=== PATIENT | male | born 1945 | race Caucasian/White ===

== ENCOUNTER 2019-01-03 11:30 | Inpatient (IN) ==
[~2019-01-03 11:30] MED LIST: ACETAMINOPHEN 325 MG TABLET PO PRN; ALBUTEROL/IPRATROPIUM 3 ML NEB RESP TX PRN; BIVALIRUDIN 250 MG VIAL IV ONE; DOCUSATE SODIUM 100 MG CAPSULE PO PRN; HEPARIN/NACL 0.9% 2 UNITS/ML 1,000 ML IV ONE; HYDROmorphone 2 MG/1 ML VIAL ONE; LACTULOSE 20 GM/30 ML UDCUP PO PRN; LIDOCAINE 1% 20 ML VIAL ONE; MAGNESIUM SULF RIDER 4 GM in PREMIX 1 EACH IV PRN; MIDAZOLAM 2 MG/2 ML VIAL ONE; MORPHINE 4 MG/1 ML VIAL IV PRN; ONDANSETRON 4 MG/2 ML VIAL IV PRN; POTASSIUM CHLORIDE 20 MEQ TABLET PO PRN; PROMETHAZINE 25 MG TABLET PO PRN; ZALEPLON 5 MG CAPSULE PO PRN; diphenhydrAMINE CAP 25 MG CAPSULE PO PRN; guaiFENesin/DM ER 600-30 MG TABLET PO PRN
[2019-01-03] MEDS ORDERED: HEPARIN/NACL 0.9% 2 UNITS/ML 500 ML IV ONE (11:44)
[2019-01-03] MEDS ORDERED: TICAGRELOR 90 MG TABLET ONE (11:59)
[2019-01-03] MEDS ORDERED: DEXTROSE 10% 250 ML BAG IV PRN (12:18)
[2019-01-03] MEDS ORDERED: GLUCAGON 1 MG VIAL IM PRN (12:18)
[2019-01-03] MEDS ORDERED: NITROGLYCERIN SL 0.4 MG TABLET SL PRN (12:18)
[2019-01-03] MEDS ORDERED: hydrALAZINE 20 MG/1 ML VIAL IV PRN (12:42)
[2019-01-03] MEDS: SODIUM CHLORIDE 0.9% 1,000 ML IV SCH (12:49)
[2019-01-03] MEDS: INSULIN LISPRO 100 UNIT/ML SUBCUT SCH ×3 (14:06→22:58)
[2019-01-03] MEDS: NICOTINE 21 MG/24 HR PATCH TRANSDERM SCH (14:06)
[2019-01-03 14:41] LABS: Basophils # 0.1 10*3/uL (0.0-0.2); Basophils % 0.4 % (0.0-0.8); Eosinophils % 0.1 % (0.00-10.9); Hemoglobin 15.9 GM/DL (14.0-18.0); Immature Granulocytes % 0.7 %; Immature Granulocytes Absolute 0.08 #; Lymphocytes # 1.2 10*3/uL (1.4-4.0); Mean Corpuscular HGB Conc 33.8 GM/DL (32-36); Mean Corpuscular Volume 90.2 FL (87-102); Mean Platelet Volume 11.1 FL (9.6-12.0); Monocytes % 5.8 % (1.7-12.7); Platelet Count 206 T/CUMM (130-400); Red Blood Count 5.21 MC/CUMM (3.8-5.5)
[2019-01-03 15:12] LABS: Albumin 3.5 G/DL (3.4-5.0); Bilirubin,Total 0.6 MG/DL (0.2-1.0); Calcium 8.4 MG/DL (8.5-10.1); Osmolality,Calculated 283.5 MOS/KG (273-304); Risk Ratio 2.92; Thyroid Stimulating Hormone 0.69 uIU/ml (0.358-3.74); Total Protein 7.2 G/DL (6.4-8.3); VLDL CHOLESTEROL 19.6 MG/DL
[2019-01-03 15:23] LABS: Apearance,Urine CLEAR (Clear); Bilirubin,Urine Negative (Negative); Blood, Urine Large mg/dL (Negative); Glucose,Urine (UA) >=500 mg/dL (Negative); Ketones,Urine 5 mg/dL (Negative); Nitrite,Urine Negative (Negative); Protein,Urine 100 MG/DL; RBC,Urine 3 /HPF (0-4); Squamous Epithelial Cell,Urine Occasional /HPF (0-10); Urine Color Yellow (Yellow); Urine Specific Gravity > 1.060 (1.001-1.035); Urine Urobilinogen < 2.0 EU/DL (0.2-1.0); WBC,Urine 1 /HPF (0-6)
[2019-01-03 15:27] LABS: CKMB % 16.1 %
[2019-01-03 15:34] LABS: Troponin I > 200.000 NG/ML (0.00-0.045)
[2019-01-03] MEDS: MAGNESIUM SULF RIDER 2 GM in PREMIX 1 EACH IV PRN (17:12)
[2019-01-03 18:09] LABS: CKMB % 16.7 %; Troponin I > 200.000 NG/ML (0.00-0.045)
[2019-01-03] MEDS: TICAGRELOR 90 MG TABLET PO SCH (20:26)
[2019-01-03] MEDS: carvediloL 6.25 MG TABLET PO SCH (20:26)
[2019-01-03] MEDS: glipiZIDE 10 MG TABLET PO SCH (20:26)
[2019-01-03] MEDS: OMEGA 3 ACID ETHYL ESTERS 1 GM CAPSULE PO SCH (23:04)
[2019-01-04 05:43] LABS: Basophils % 0.3 % (0.0-0.8); Eosinophils # 0.1 10*3/uL (0.0-0.87); Eosinophils % 0.5 % (0.00-10.9); Hematocrit 40.1 VOL% (42.0-52.0); Hemoglobin 13.7 GM/DL (14.0-18.0); Immature Granulocytes % 0.4 %; Immature Granulocytes Absolute 0.04 #; Lymphocytes # 1.7 10*3/uL (1.4-4.0); Lymphocytes % 15.1 % (21.2-54.2); Mean Corpuscular HGB Conc 34.2 GM/DL (32-36); Mean Corpuscular Volume 89.3 FL (87-102); Monocytes % 7.1 % (1.7-12.7); Neutrophils % 76.6 % (38.7-73.9); Platelet Count 191 T/CUMM (130-400); Red Blood Count 4.49 MC/CUMM (3.8-5.5); Red Cell Distribution Width 13.1 % (9.3-17.3)
[2019-01-04] MEDS: LEVOTHYROXINE 150 MCG TABLET PO SCH (06:18)
[2019-01-04 06:34] LABS: CKMB % 13.8 %; Calcium 8.1 MG/DL (8.5-10.1); Osmolality,Calculated 278.8 MOS/KG (273-304)
[2019-01-04] MEDS: MAGNESIUM SULF RIDER 2 GM in PREMIX 1 EACH IV PRN (06:48)
[2019-01-04 06:59] LABS: Bilirubin,Direct 0.19 MG/DL (0.0-0.20); Bilirubin,Indirect 0.6 MG/DL (0.0-1.0); Bilirubin,Total 0.8 MG/DL (0.2-1.0); Total Protein 6.2 G/DL (6.4-8.3)
[2019-01-04 07:15] LABS: Hepatitis B Core IgM Quant < 0.05 Index; Hepatitis B Surface Ag Quant < 0.10 Index; Hepatitis B Surface Ag Result Negative (Negative); Hepatitis C Virus Ab Quant 0.15 Index; Hepatitis C Virus Ab Result Negative (Negative)
[2019-01-04] MEDS: NICOTINE 21 MG/24 HR PATCH TRANSDERM SCH (08:55)
[2019-01-04] MEDS: INSULIN LISPRO 100 UNIT/ML SUBCUT SCH ×4 (08:55→21:36)
[2019-01-04] MEDS: ASPIRIN EC 81 MG TABLET PO SCH (08:56)
[2019-01-04] MEDS: CYANOCOBALAMIN 500 MCG TABLET PO SCH (08:56)
[2019-01-04] MEDS: ROSUVASTATIN 20 MG TABLET PO SCH (08:56)
[2019-01-04] MEDS: CHOLECALCIFEROL 1,000 UNIT TABLET PO SCH (08:56)
[2019-01-04] MEDS: LISINOPRIL 10 MG TABLET PO SCH (08:56)
[2019-01-04] MEDS: glipiZIDE 10 MG TABLET PO SCH ×2 (08:56→21:36)
[2019-01-04] MEDS: PANTOPRAZOLE 40 MG TABLET PO SCH (08:56)
[2019-01-04] MEDS: MULTIVITAMIN (CENTRUM) TABLET PO SCH (08:56)
[2019-01-04] MEDS: carvediloL 6.25 MG TABLET PO SCH ×2 (08:56→21:36)
[2019-01-04] MEDS: TICAGRELOR 90 MG TABLET PO SCH ×2 (08:56→21:36)
[2019-01-04] MEDS: OMEGA 3 ACID ETHYL ESTERS 1 GM CAPSULE PO SCH ×2 (08:56→21:36)
[2019-01-04] MEDS: SODIUM CHLORIDE 0.9% 1,000 ML IV SCH (11:39)
[2019-01-05] MEDS: LEVOTHYROXINE 150 MCG TABLET PO SCH (06:04)
[2019-01-05 06:20] LABS: Calcium 8.4 MG/DL (8.5-10.1); Osmolality,Calculated 281.5 MOS/KG (273-304)
[2019-01-05] MEDS: INSULIN LISPRO 100 UNIT/ML SUBCUT SCH ×4 (09:09→22:07)
[2019-01-05] MEDS: TICAGRELOR 90 MG TABLET PO SCH ×2 (09:11→22:06)
[2019-01-05] MEDS: glipiZIDE 10 MG TABLET PO SCH ×2 (09:12→22:07)
[2019-01-05] MEDS: CHOLECALCIFEROL 1,000 UNIT TABLET PO SCH (09:12)
[2019-01-05] MEDS: carvediloL 6.25 MG TABLET PO SCH ×2 (09:12→22:07)
[2019-01-05] MEDS: NICOTINE 21 MG/24 HR PATCH TRANSDERM SCH (09:13)
[2019-01-05] MEDS: ROSUVASTATIN 20 MG TABLET PO SCH (09:14)
[2019-01-05] MEDS: ASPIRIN EC 81 MG TABLET PO SCH (09:15)
[2019-01-05] MEDS: LISINOPRIL 10 MG TABLET PO SCH (09:16)
[2019-01-05] MEDS: OMEGA 3 ACID ETHYL ESTERS 1 GM CAPSULE PO SCH ×2 (09:16→22:06)
[2019-01-05] MEDS: CYANOCOBALAMIN 500 MCG TABLET PO SCH (09:17)
[2019-01-05] MEDS: MULTIVITAMIN (CENTRUM) TABLET PO SCH (09:17)
[2019-01-05] MEDS: PANTOPRAZOLE 40 MG TABLET PO SCH (09:17)
[2019-01-06 05:23] LABS: Basophils % 0.3 % (0.0-0.8); Eosinophils # 0.1 10*3/uL (0.0-0.87); Eosinophils % 1.5 % (0.00-10.9); Hematocrit 37.8 VOL% (42.0-52.0); Hemoglobin 12.8 GM/DL (14.0-18.0); Immature Granulocytes % 0.2 %; Immature Granulocytes Absolute 0.02 #; Lymphocytes % 21.2 % (21.2-54.2); Mean Corpuscular HGB Conc 33.9 GM/DL (32-36); Mean Corpuscular Volume 90.6 FL (87-102); Mean Platelet Volume 11.5 FL (9.6-12.0); Monocytes % 10.9 % (1.7-12.7); Neutrophils % 65.9 % (38.7-73.9); Platelet Count 164 T/CUMM (130-400); Red Blood Count 4.17 MC/CUMM (3.8-5.5); White Blood Count 9.2 T/CUMM (4-12)
[2019-01-06 05:38] LABS: Osmolality,Calculated 283.4 MOS/KG (273-304)
[2019-01-06] MEDS: LEVOTHYROXINE 150 MCG TABLET PO SCH (05:40)
[2019-01-06] MEDS ORDERED: MAGNESIUM SULF RIDER 2 GM in PREMIX 1 EACH IV PRN (07:48)
[2019-01-06] MEDS ORDERED: MAGNESIUM SULF RIDER 4 GM in PREMIX 1 EACH IV PRN (07:48)
[2019-01-06] MEDS: NICOTINE 21 MG/24 HR PATCH TRANSDERM SCH (09:00)
[2019-01-06] MEDS: INSULIN LISPRO 100 UNIT/ML SUBCUT SCH ×2 (09:00→13:04)
[2019-01-06] MEDS: PANTOPRAZOLE 40 MG TABLET PO SCH (09:01)
[2019-01-06] MEDS: LISINOPRIL 10 MG TABLET PO SCH (09:01)
[2019-01-06] MEDS: ASPIRIN EC 81 MG TABLET PO SCH (09:01)
[2019-01-06] MEDS: carvediloL 6.25 MG TABLET PO SCH (09:02)
[2019-01-06] MEDS: CYANOCOBALAMIN 500 MCG TABLET PO SCH (09:02)
[2019-01-06] MEDS: CHOLECALCIFEROL 1,000 UNIT TABLET PO SCH (09:02)
[2019-01-06] MEDS: MULTIVITAMIN (CENTRUM) TABLET PO SCH (09:02)
[2019-01-06] MEDS: glipiZIDE 10 MG TABLET PO SCH (09:02)
[2019-01-06] MEDS: TICAGRELOR 90 MG TABLET PO SCH (09:02)
[2019-01-06] MEDS: OMEGA 3 ACID ETHYL ESTERS 1 GM CAPSULE PO SCH (09:02)
[2019-01-06] MEDS: ROSUVASTATIN 20 MG TABLET PO SCH (09:04)
[2019-01-06 12:52] VITALS: BP 107/65
== END 2019-01-06 14:06 | disposition home or self-care (01) | DRG 247 ==
LOC: EDSTATUS 11:30 → N.CC 12:12 → N.CL 12:12 → N.SDSINP 12:12 → N.CC 12:15 → N.TELES 01-04 10:04 → N.CL 01-06 14:06 → N.TELES 01-06 23:25
PROVIDERS: ADMIT Internal Medicine Cardiovascular Disease; ATTEND Internal Medicine Cardiovascular Disease
PROC: CLCCHCL (ICD-10-PCS; 2019-01-03 11:45)

== ENCOUNTER 2021-04-29 22:58 | Inpatient (IN) ==
[2021-04-29] MEDS ORDERED: DILTIAZEM 50 MG/10 ML VIAL IV ONE (23:07)
[2021-04-29] MEDS ORDERED: AMIODARONE 150 MG/3 ML VIAL ONE (23:10)
[2021-04-29] MEDS ORDERED: METOPROLOL TARTRATE 5 MG/5 ML VIAL IV STA (23:29)
[2021-04-29] MEDS ORDERED: METOPROLOL TARTRATE 25 MG TABLET PO STA (23:29)
[2021-04-29 23:36] LABS: Basophils # 0.1 10*3/uL (0.0-0.2); Basophils % 0.5 % (0.0-0.8); Eosinophils # 0.4 10*3/uL (0.0-0.87); Eosinophils % 3.8 % (0.00-10.9); Hematocrit 41.8 VOL% (42.0-52.0); Immature Granulocytes % 0.2 %; Immature Granulocytes Absolute 0.02 #; Mean Corpuscular HGB Conc 33.5 GM/DL (32-36); Mean Corpuscular Volume 89.5 FL (87-102); Mean Platelet Volume 11.7 FL (9.6-12.0); Monocytes % 9.3 % (1.7-12.7); Neutrophils % 65.2 % (38.7-73.9); Platelet Count 204 T/CUMM (130-400); Red Blood Count 4.67 MC/CUMM (3.8-5.5); Red Cell Distribution Width 13.5 % (9.3-17.3); White Blood Count 9.6 T/CUMM (4-12)
[2021-04-29] MEDS ORDERED: DILTIAZEM 100 MG VIAL.ADD IV ONE (23:43)
[2021-04-29] MEDS ORDERED: DILTIAZEM INJ 100 MG in SODIUM CHLORIDE 0.9% 100 ML IV SCH (23:45)
[2021-04-29] MEDS ORDERED: DILTIAZEM 50 MG/10 ML VIAL IV STA (23:54)
[2021-04-29 23:55] LABS: INR 1.1; PT Patient Result 11.7 SECS (10.5-12.0)
[2021-04-30 00:05] LABS: Glucose,Urine (UA) 100 mg/dL (Negative); Ketones,Urine Negative (Negative); Nitrite,Urine Negative (Negative); Protein,Urine 30 mg/dL (Negative); Urine Appearance Clear (Clear); Urine Color Yellow (Yellow)
[2021-04-30 00:06] LABS: Albumin 3.4 G/DL (3.4-5.0); Bilirubin,Total 0.4 MG/DL (0.20-1.00); Calcium 8.8 MG/DL (8.5-10.1); Free T4 (Free Thyroxine) 1.45 NG/DL (0.76-1.46); Osmolality,Calculated 283.5 MOS/KG (273-304); Potassium 3.6 MMOL/L (3.5-5.1); Thyroid Stimulating Hormone 0.422 uIU/ml (0.358-3.74); Total Protein 7.3 G/DL (6.4-8.2)
[2021-04-30 00:06] LABS: Bilirubin,Urine Negative (Negative); Blood, Urine Trace mg/dL (Negative); Urine Urobilinogen 0.2 eU/dL (<2.0)
[2021-04-30 00:09] LABS: Barbiturates Screen,Urine Negative (Negative); Benzodiazepines Screen,Urine Negative (Negative); Cannabinoid Screen,Urine Negative (Negative); Opiate Screen,Urine Negative (Negative); Phencyclidine Screen,Urine Negative (Negative)
[2021-04-30 00:11] LABS: Bacteria,Urine Occasional /HPF (Few); RBC,Urine <1 /HPF (0-4)
[2021-04-30] MEDS ORDERED: AMIODARONE 450 MG/9 ML VIAL IV ONE (00:47)
[2021-04-30] MEDS ORDERED: MAGNESIUM SULF RIDER 2 GM/50 ML PREMIX IV PRN (00:53)
[2021-04-30] MEDS ORDERED: POTASSIUM CHLORIDE 20 MEQ TABLET PO PRN (00:53)
[2021-04-30] MEDS ORDERED: ONDANSETRON 4 MG/2 ML VIAL IV PRN (00:53)
[2021-04-30] MEDS ORDERED: GLUCAGON 1 MG VIAL IM PRN ×2 (00:53→13:03)
[2021-04-30] MEDS ORDERED: MAGNESIUM SULF RIDER 4 GM/100 ML PREMIX IV PRN (00:53)
[2021-04-30] MEDS ORDERED: AMIODARONE INJ 150 MG in DEXTROSE 5% 100 ML IV ONE (00:53)
[2021-04-30] MEDS ORDERED: MORPHINE 4 MG/1 ML VIAL IV PRN (00:56)
[2021-04-30] MEDS ORDERED: DEXTROSE 10% 250 ML BAG IV PRN (00:56)
[2021-04-30] MEDS ORDERED: AMIODARONE INJ 450 MG in DEXTROSE 5% 241 ML IV SCH (01:00)
[2021-04-30] MEDS: SODIUM CHLORIDE 0.9% 1,000 ML IV SCH ×3 (02:34→18:55)
[2021-04-30 03:24] VITALS: BP 90/52
[2021-04-30 04:39] LABS: Basophils % 0.5 % (0.0-0.8); Eosinophils # 0.3 10*3/uL (0.0-0.87); Eosinophils % 3.6 % (0.00-10.9); Hematocrit 38.5 VOL% (42.0-52.0); Immature Granulocytes % 0.2 %; Immature Granulocytes Absolute 0.02 #; Lymphocytes # 2.1 10*3/uL (1.4-4.0); Lymphocytes % 25.6 % (21.2-54.2); Mean Corpuscular HGB Conc 33.8 GM/DL (32-36); Mean Corpuscular Volume 89.1 FL (87-102); Mean Platelet Volume 11.2 FL (9.6-12.0); Monocytes % 10.6 % (1.7-12.7); Neutrophils % 59.5 % (38.7-73.9); Platelet Count 191 T/CUMM (130-400); Red Blood Count 4.32 MC/CUMM (3.8-5.5); Red Cell Distribution Width 13.3 % (9.3-17.3); White Blood Count 8.3 T/CUMM (4-12)
[2021-04-30 05:06] LABS: Albumin 2.8 G/DL (3.4-5.0); Bilirubin,Total 0.4 MG/DL (0.20-1.00); Calcium 8.4 MG/DL (8.5-10.1); Osmolality,Calculated 284.1 MOS/KG (273-304); Potassium 3.8 MMOL/L (3.5-5.1); Total Protein 6.1 G/DL (6.4-8.2)
[2021-04-30 05:12] LABS: Risk Ratio 2.63; VLDL Cholesterol 29.4 MG/DL
[2021-04-30] MEDS: INSULIN REGULAR 100 UNIT/ML SUBCUT SCH ×3 (05:54→18:20)
[2021-04-30] MEDS ORDERED: NITROGLYCERIN SL 0.4 MG TABLET SL PRN (07:08)
[2021-04-30] MEDS ORDERED: DIAZEPAM 5 MG TABLET PO ONE (08:49)
[2021-04-30] MEDS ORDERED: diphenhydrAMINE CAP 50 MG CAPSULE PO ONE (08:49)
[2021-04-30] MEDS ORDERED: diphenhydrAMINE CAP 25 MG CAPSULE PO ONE (09:00)
[2021-04-30] MEDS ORDERED: PANTOPRAZOLE 40 MG TABLET PO SCH (09:00)
[2021-04-30] MEDS: ROSUVASTATIN 20 MG TABLET PO SCH (10:08)
[2021-04-30] MEDS: glipiZIDE 5 MG TABLET PO SCH ×2 (10:09→20:16)
[2021-04-30] MEDS: LEVOTHYROXINE 175 MCG TABLET PO SCH (10:09)
[2021-04-30] MEDS: OMEGA 3 ACID ETHYL ESTERS 1 GM CAPSULE PO SCH ×2 (10:09→20:51)
[2021-04-30] MEDS: INSULIN GLARGINE 100 UNIT/ML SUBCUT SCH ×2 (10:10→20:47)
[2021-04-30] MEDS: carvediloL 6.25 MG TABLET PO SCH ×2 (10:20→20:15)
[2021-04-30] MEDS: AMIODARONE 200 MG TABLET PO SCH ×2 (10:20→20:16)
[2021-04-30] MEDS: TICAGRELOR 90 MG TABLET PO SCH ×2 (10:20→20:16)
[2021-04-30] MEDS: ASPIRIN EC 81 MG TABLET PO SCH (10:20)
[2021-04-30] MEDS: PANTOPRAZOLE 40 MG TABLET PO SCH (10:20)
[2021-04-30] MEDS ORDERED: HEPARIN/NACL 0.9% 2 UNITS/ML 2,000 UNIT/1,000 ML BAG IV ONE (10:24)
[2021-04-30] MEDS ORDERED: HYDROmorphone 1 MG/1 ML SYRINGE ONE (11:41)
[2021-04-30] MEDS ORDERED: MIDAZOLAM 2 MG/2 ML VIAL ONE (11:41)
[2021-04-30] MEDS ORDERED: BIVALIRUDIN 250 MG VIAL IV ONE (12:10)
[2021-04-30] MEDS ORDERED: TICAGRELOR 90 MG TABLET ONE (12:50)
[2021-04-30] MEDS ORDERED: DEXTROSE 50% 25 GM/50 ML VIAL IV PRN ×2 (13:03→17:20)
[2021-04-30] MEDS ORDERED: SODIUM CHLORIDE 0.9% 1,000 ML IV SCH (13:30)
[2021-05-01] MEDS: SODIUM CHLORIDE 0.9% 1,000 ML IV SCH (00:08)
[2021-05-01] MEDS: INSULIN REGULAR 100 UNIT/ML SUBCUT SCH ×4 (00:41→17:39)
[2021-05-01] MEDS ORDERED: MORPHINE 2 MG/1 ML SYRINGE IV PRN (05:25)
[2021-05-01 05:43] LABS: Basophils % 0.5 % (0.0-0.8); Eosinophils # 0.2 10*3/uL (0.0-0.87); Eosinophils % 2.2 % (0.00-10.9); Hematocrit 36.4 VOL% (42.0-52.0); Hemoglobin 12.2 GM/DL (14.0-18.0); Immature Granulocytes % 0.4 %; Immature Granulocytes Absolute 0.03 #; Lymphocytes # 1.2 10*3/uL (1.4-4.0); Lymphocytes % 13.6 % (21.2-54.2); Mean Corpuscular HGB Conc 33.5 GM/DL (32-36); Mean Corpuscular Volume 89.7 FL (87-102); Mean Platelet Volume 11.4 FL (9.6-12.0); Monocytes % 8.8 % (1.7-12.7); Neutrophils % 74.5 % (38.7-73.9); Platelet Count 155 T/CUMM (130-400); Red Blood Count 4.06 MC/CUMM (3.8-5.5); Red Cell Distribution Width 13.5 % (9.3-17.3); White Blood Count 8.5 T/CUMM (4-12)
[2021-05-01 06:01] LABS: Calcium 8.1 MG/DL (8.5-10.1); Osmolality,Calculated 285.3 MOS/KG (273-304)
[2021-05-01 06:02] LABS: Osmolality,Calculated 282.4 MOS/KG (273-304); Potassium 3.8 MMOL/L (3.5-5.1)
[2021-05-01] MEDS ORDERED: MAGNESIUM SULF RIDER 4 GM/100 ML PREMIX IV ONE (07:30)
[2021-05-01] MEDS: AMIODARONE 200 MG TABLET PO SCH ×2 (08:02→22:08)
[2021-05-01] MEDS: carvediloL 6.25 MG TABLET PO SCH ×2 (08:02→22:12)
[2021-05-01] MEDS: INSULIN GLARGINE 100 UNIT/ML SUBCUT SCH ×2 (09:27→22:09)
[2021-05-01] MEDS: LEVOTHYROXINE 175 MCG TABLET PO SCH (09:27)
[2021-05-01] MEDS: ASPIRIN EC 81 MG TABLET PO SCH (09:28)
[2021-05-01] MEDS: OMEGA 3 ACID ETHYL ESTERS 1 GM CAPSULE PO SCH ×2 (09:28→22:09)
[2021-05-01] MEDS: PANTOPRAZOLE 40 MG TABLET PO SCH (09:28)
[2021-05-01] MEDS: FUROSEMIDE 40 MG TABLET PO SCH (09:28)
[2021-05-01] MEDS: ROSUVASTATIN 20 MG TABLET PO SCH (09:28)
[2021-05-01] MEDS: glipiZIDE 5 MG TABLET PO SCH ×2 (09:28→22:09)
[2021-05-01] MEDS: TICAGRELOR 90 MG TABLET PO SCH ×2 (09:28→22:09)
[2021-05-01] MEDS: lisinopriL 10 MG TABLET PO SCH ×2 (09:28→22:08)
[2021-05-01] MEDS ORDERED: AMIODARONE INJ 150 MG in DEXTROSE 5% 100 ML IV ONE (11:14)
[2021-05-01] MEDS ORDERED: AMIODARONE 150 MG/3 ML VIAL ONE (11:21)
[2021-05-02] MEDS: INSULIN REGULAR 100 UNIT/ML SUBCUT SCH ×2 (00:56→06:00)
[2021-05-02 04:43] LABS: Basophils % 0.4 % (0.0-0.8); Eosinophils # 0.2 10*3/uL (0.0-0.87); Eosinophils % 2.3 % (0.00-10.9); Hematocrit 36.5 VOL% (42.0-52.0); Hemoglobin 12.4 GM/DL (14.0-18.0); Immature Granulocytes % 0.4 %; Immature Granulocytes Absolute 0.03 #; Lymphocytes # 1.5 10*3/uL (1.4-4.0); Lymphocytes % 18.7 % (21.2-54.2); Mean Platelet Volume 11.2 FL (9.6-12.0); Monocytes % 10.5 % (1.7-12.7); Neutrophils % 67.7 % (38.7-73.9); Platelet Count 162 T/CUMM (130-400); Red Blood Count 4.15 MC/CUMM (3.8-5.5); Red Cell Distribution Width 13.4 % (9.3-17.3); White Blood Count 8.2 T/CUMM (4-12)
[2021-05-02 05:06] LABS: Calcium 8.9 MG/DL (8.5-10.1); Osmolality,Calculated 279.3 MOS/KG (273-304); Potassium 3.3 MMOL/L (3.5-5.1)
[2021-05-02] MEDS ORDERED: POTASSIUM CHLORIDE 20 MEQ TABLET PO PRN (07:08)
[2021-05-02] MEDS: INSULIN GLARGINE 100 UNIT/ML SUBCUT SCH (09:00)
[2021-05-02] MEDS: carvediloL 6.25 MG TABLET PO SCH (09:01)
[2021-05-02] MEDS: lisinopriL 10 MG TABLET PO SCH (09:01)
[2021-05-02] MEDS: FUROSEMIDE 40 MG TABLET PO SCH (09:02)
[2021-05-02] MEDS: AMIODARONE 200 MG TABLET PO SCH (09:02)
[2021-05-02] MEDS: ASPIRIN EC 81 MG TABLET PO SCH (09:02)
[2021-05-02] MEDS: OMEGA 3 ACID ETHYL ESTERS 1 GM CAPSULE PO SCH (09:02)
[2021-05-02] MEDS: glipiZIDE 5 MG TABLET PO SCH (09:02)
[2021-05-02] MEDS: ROSUVASTATIN 20 MG TABLET PO SCH (09:02)
[2021-05-02] MEDS: LEVOTHYROXINE 175 MCG TABLET PO SCH (09:02)
[2021-05-02] MEDS: TICAGRELOR 90 MG TABLET PO SCH (09:03)
[2021-05-02] MEDS: PANTOPRAZOLE 40 MG TABLET PO SCH (09:03)
== END 2021-05-02 12:15 | disposition home or self-care (01) | DRG 246 ==
LOC: EDUNIT# → EDBD → N.ED 22:58 → N.EDINP 04-30 00:24 → N.ICU 04-30 01:48
PROVIDERS: ADMIT Internal Medicine Cardiovascular Disease; ATTEND Internal Medicine Cardiovascular Disease
PROC: CLCCHCL (ICD-10-PCS; 2021-04-30 11:45)

== ENCOUNTER 2022-02-25 00:04 | Inpatient (IN) ==
[2022-02-25 00:27] LABS: Basophils % 0.5 % (0.0-0.8); Eosinophils # 0.2 10*3/uL (0.0-0.87); Eosinophils % 2.1 % (0.00-10.9); Hematocrit 39.5 VOL% (42.0-52.0); Immature Granulocytes % 0.2 %; Immature Granulocytes Absolute 0.02 #; Lymphocytes % 23.7 % (21.2-54.2); Mean Corpuscular HGB Conc 32.9 GM/DL (32-36); Mean Corpuscular Volume 91.4 FL (87-102); Monocytes # 0.8 10*3/uL (0.11-0.8); Monocytes % 9.8 % (1.7-12.7); Neutrophils % 63.7 % (38.7-73.9); Platelet Count 204 T/CUMM (130-400); Red Blood Count 4.32 MC/CUMM (3.8-5.5); Red Cell Distribution Width 15.2 % (9.3-17.3); White Blood Count 8.4 T/CUMM (4-12)
[2022-02-25] MEDS ORDERED: ONDANSETRON 4 MG/2 ML VIAL IV STA (00:37)
[2022-02-25] MEDS ORDERED: FUROSEMIDE 100 MG/10 ML VIAL IV STA (00:37)
[2022-02-25 00:39] LABS: PT Patient Result 10.9 SECS (10.1-12.1); Partial Thromboplastin Time 27.4 SECS (23.7-32.9)
[2022-02-25 00:49] LABS: Albumin 3.7 G/DL (3.4-5.0); Bilirubin,Total 0.4 MG/DL (0.20-1.00); Calcium 9.1 MG/DL (8.5-10.1); Osmolality,Calculated 285.5 MOS/KG (273-304); Potassium 4.4 MMOL/L (3.5-5.1); Total Protein 6.8 G/DL (6.4-8.2)
[2022-02-25 00:54] LABS: PT Patient Result 10.9 SECS (10.1-12.1)
[2022-02-25] MEDS ORDERED: ONDANSETRON 4 MG/2 ML VIAL IV PRN (02:06)
[2022-02-25] MEDS ORDERED: hydrALAZINE 20 MG/1 ML VIAL IV PRN (02:06)
[2022-02-25] MEDS ORDERED: GLUCAGON 1 MG VIAL IM PRN (02:06)
[2022-02-25] MEDS ORDERED: MORPHINE 2 MG/1 ML SYRINGE IV PRN (02:06)
[2022-02-25] MEDS ORDERED: ACETAMINOPHEN 325 MG TABLET PO PRN (02:06)
[2022-02-25] MEDS ORDERED: NICOTINE 21 MG/24 HR PATCH TRANSDERM PRN (02:06)
[2022-02-25] MEDS ORDERED: DEXTROSE 10% 250 ML BAG IV PRN (02:29)
[2022-02-25 02:39] LABS: Bacteria,Urine Occasional /HPF (Few); Mucus,Urine Occasional /LPF (Occasional); RBC,Urine 2 /HPF (0-4); Squamous Epithelial Cell,Urine Occasional /HPF (0-10)
[2022-02-25 02:40] LABS: Glucose,Urine (UA) Negative (Negative); Ketones,Urine Negative (Negative); Nitrite,Urine Negative (Negative); Protein,Urine Negative (Negative); Urine Appearance Clear (Clear); Urine Color Yellow (Yellow)
[2022-02-25 02:41] LABS: Bilirubin,Urine Negative (Negative); Blood, Urine Trace mg/dL (Negative); Urine Urobilinogen 0.2 eU/dL (<2.0)
[2022-02-25] MEDS ORDERED: NITROGLYCERIN SL 0.4 MG TABLET SL PRN (02:52)
[2022-02-25] MEDS ORDERED: ALBUTEROL 2.5 MG/3 ML NEB RESP TX PRN (03:03)
[2022-02-25] MEDS: LEVOTHYROXINE 150 MCG TABLET PO SCH (05:25)
[2022-02-25 06:53] LABS: Albumin 3.4 G/DL (3.4-5.0); Bilirubin,Total 0.4 MG/DL (0.20-1.00); Calcium 9.1 MG/DL (8.5-10.1); Osmolality,Calculated 288.1 MOS/KG (273-304); Potassium 4.4 MMOL/L (3.5-5.1); Total Protein 6.4 G/DL (6.4-8.2)
[2022-02-25] MEDS: INSULIN LISPRO 100 UNIT/ML SUBCUT SCH ×4 (08:06→21:12)
[2022-02-25] MEDS: SPIRONOLACTONE 25 MG TABLET PO SCH (08:07)
[2022-02-25] MEDS: ASCORBIC ACID 500 MG TABLET PO SCH (08:07)
[2022-02-25] MEDS: VITAMIN E 400 UNIT CAPSULE PO SCH (08:08)
[2022-02-25] MEDS: PANTOPRAZOLE 40 MG TABLET PO SCH (08:08)
[2022-02-25] MEDS: FERROUS SULFATE 325 MG TABLET PO SCH (08:08)
[2022-02-25] MEDS: CYANOCOBALAMIN 500 MCG TABLET PO SCH (08:09)
[2022-02-25] MEDS: MULTIVITAMIN (CENTRUM) TABLET PO SCH (08:09)
[2022-02-25] MEDS: AMIODARONE 200 MG TABLET PO SCH ×2 (09:17→21:17)
[2022-02-25] MEDS: TICAGRELOR 90 MG TABLET PO SCH ×2 (09:17→21:17)
[2022-02-25] MEDS: OMEGA 3 ACID ETHYL ESTERS 1 GM CAPSULE PO SCH (09:18)
[2022-02-25] MEDS: carvediloL 25 MG TABLET PO SCH ×2 (09:22→21:16)
[2022-02-25] MEDS: BACILLUS COAGULANS CAPLET PO SCH (10:05)
[2022-02-25] MEDS: ROSUVASTATIN 20 MG TABLET PO SCH (21:16)
[2022-02-25] MEDS: ASPIRIN EC 81 MG TABLET PO SCH (21:17)
[2022-02-25] MEDS: ENOXAPARIN 40 MG/0.4 ML SYRINGE SUBCUT SCH (21:19)
[2022-02-26 04:20] LABS: Basophils % 0.5 % (0.0-0.8); Eosinophils # 0.2 10*3/uL (0.0-0.87); Eosinophils % 2.5 % (0.00-10.9); Hematocrit 35.2 VOL% (42.0-52.0); Hemoglobin 11.4 GM/DL (14.0-18.0); Immature Granulocytes % 0.1 %; Immature Granulocytes Absolute 0.01 #; Lymphocytes # 1.8 10*3/uL (1.4-4.0); Lymphocytes % 22.5 % (21.2-54.2); Mean Corpuscular HGB Conc 32.4 GM/DL (32-36); Mean Corpuscular Volume 93.1 FL (87-102); Mean Platelet Volume 11.4 FL (9.6-12.0); Monocytes # 0.8 10*3/uL (0.11-0.8); Monocytes % 10.3 % (1.7-12.7); Neutrophils % 64.1 % (38.7-73.9); Platelet Count 160 T/CUMM (130-400); Red Blood Count 3.78 MC/CUMM (3.8-5.5); Red Cell Distribution Width 15.1 % (9.3-17.3)
[2022-02-26 04:34] LABS: Calcium 8.6 MG/DL (8.5-10.1); Osmolality,Calculated 278.8 MOS/KG (273-304); Potassium 4.4 MMOL/L (3.5-5.1)
[2022-02-26] MEDS: LEVOTHYROXINE 150 MCG TABLET PO SCH (06:11)
[2022-02-26] MEDS ORDERED: SODIUM CHLORIDE 0.9% 1,000 ML IV SCH (07:30)
[2022-02-26] MEDS: INSULIN LISPRO 100 UNIT/ML SUBCUT SCH ×4 (07:30→22:48)
[2022-02-26] MEDS: CYANOCOBALAMIN 500 MCG TABLET PO SCH (09:34)
[2022-02-26] MEDS: AMIODARONE 200 MG TABLET PO SCH ×2 (09:34→21:00)
[2022-02-26] MEDS: OMEGA 3 ACID ETHYL ESTERS 1 GM CAPSULE PO SCH (09:34)
[2022-02-26] MEDS: ASCORBIC ACID 500 MG TABLET PO SCH (09:34)
[2022-02-26] MEDS: VITAMIN E 400 UNIT CAPSULE PO SCH (09:35)
[2022-02-26] MEDS: FERROUS SULFATE 325 MG TABLET PO SCH (09:35)
[2022-02-26] MEDS: PANTOPRAZOLE 40 MG TABLET PO SCH (09:35)
[2022-02-26] MEDS: SPIRONOLACTONE 25 MG TABLET PO SCH (09:35)
[2022-02-26] MEDS: MULTIVITAMIN (CENTRUM) TABLET PO SCH (09:35)
[2022-02-26] MEDS: carvediloL 12.5 MG TABLET PO SCH ×2 (09:35→21:00)
[2022-02-26] MEDS: BACILLUS COAGULANS CAPLET PO SCH (09:36)
[2022-02-26] MEDS: TICAGRELOR 90 MG TABLET PO SCH ×2 (09:36→21:00)
[2022-02-26] MEDS: ROSUVASTATIN 20 MG TABLET PO SCH (21:00)
[2022-02-26] MEDS: ASPIRIN EC 81 MG TABLET PO SCH (21:00)
[2022-02-26] MEDS: ENOXAPARIN 40 MG/0.4 ML SYRINGE SUBCUT SCH (21:00)
[2022-02-27 05:35] LABS: Basophils # 0.1 10*3/uL (0.0-0.2); Basophils % 0.7 % (0.0-0.8); Eosinophils # 0.2 10*3/uL (0.0-0.87); Eosinophils % 2.5 % (0.00-10.9); Hematocrit 33.9 VOL% (42.0-52.0); Hemoglobin 11.1 GM/DL (14.0-18.0); Immature Granulocytes % 0.3 %; Immature Granulocytes Absolute 0.02 #; Lymphocytes # 1.8 10*3/uL (1.4-4.0); Lymphocytes % 25.7 % (21.2-54.2); Mean Corpuscular HGB Conc 32.7 GM/DL (32-36); Mean Corpuscular Volume 92.9 FL (87-102); Mean Platelet Volume 11.5 FL (9.6-12.0); Monocytes # 0.7 10*3/uL (0.11-0.8); Monocytes % 10.5 % (1.7-12.7); Neutrophils % 60.3 % (38.7-73.9); Platelet Count 156 T/CUMM (130-400); Red Blood Count 3.65 MC/CUMM (3.8-5.5); Red Cell Distribution Width 14.7 % (9.3-17.3); White Blood Count 6.8 T/CUMM (4-12)
[2022-02-27 05:54] LABS: Albumin 2.9 G/DL (3.4-5.0); Bilirubin,Total 0.5 MG/DL (0.20-1.00); Calcium 8.5 MG/DL (8.5-10.1); Osmolality,Calculated 283.5 MOS/KG (273-304); Potassium 4.2 MMOL/L (3.5-5.1)
[2022-02-27] MEDS: LEVOTHYROXINE 150 MCG TABLET PO SCH (05:54)
[2022-02-27] MEDS: SPIRONOLACTONE 25 MG TABLET PO SCH (09:38)
[2022-02-27] MEDS: INSULIN LISPRO 100 UNIT/ML SUBCUT SCH ×4 (09:38→22:01)
[2022-02-27] MEDS: MULTIVITAMIN (CENTRUM) TABLET PO SCH (09:38)
[2022-02-27] MEDS: carvediloL 3.125 MG TABLET PO SCH ×2 (09:39→22:02)
[2022-02-27] MEDS: BACILLUS COAGULANS CAPLET PO SCH (09:39)
[2022-02-27] MEDS: TICAGRELOR 90 MG TABLET PO SCH ×2 (09:39→22:02)
[2022-02-27] MEDS: CYANOCOBALAMIN 500 MCG TABLET PO SCH (09:39)
[2022-02-27] MEDS: VITAMIN E 400 UNIT CAPSULE PO SCH (09:39)
[2022-02-27] MEDS: FERROUS SULFATE 325 MG TABLET PO SCH (09:39)
[2022-02-27] MEDS: ASCORBIC ACID 500 MG TABLET PO SCH (09:39)
[2022-02-27] MEDS: PANTOPRAZOLE 40 MG TABLET PO SCH (09:39)
[2022-02-27] MEDS: OMEGA 3 ACID ETHYL ESTERS 1 GM CAPSULE PO SCH (09:39)
[2022-02-27] MEDS: AMIODARONE 200 MG TABLET PO SCH ×2 (09:39→22:02)
[2022-02-27] MEDS: INSULIN GLARGINE 100 UNIT/ML SUBCUT SCH (15:08)
[2022-02-27] MEDS: ROSUVASTATIN 20 MG TABLET PO SCH (22:02)
[2022-02-27] MEDS: ENOXAPARIN 40 MG/0.4 ML SYRINGE SUBCUT SCH (22:02)
[2022-02-27] MEDS: ASPIRIN EC 81 MG TABLET PO SCH (22:03)
[2022-02-28 05:06] LABS: Basophils % 0.4 % (0.0-0.8); Eosinophils # 0.1 10*3/uL (0.0-0.87); Eosinophils % 1.9 % (0.00-10.9); Hematocrit 35.4 VOL% (42.0-52.0); Hemoglobin 11.7 GM/DL (14.0-18.0); Immature Granulocytes % 0.1 %; Immature Granulocytes Absolute 0.01 #; Lymphocytes % 26.7 % (21.2-54.2); Mean Corpuscular HGB Conc 33.1 GM/DL (32-36); Mean Corpuscular Volume 92.2 FL (87-102); Mean Platelet Volume 11.9 FL (9.6-12.0); Monocytes # 0.7 10*3/uL (0.11-0.8); Monocytes % 9.6 % (1.7-12.7); Neutrophils % 61.3 % (38.7-73.9); Platelet Count 168 T/CUMM (130-400); Red Blood Count 3.84 MC/CUMM (3.8-5.5); Red Cell Distribution Width 14.8 % (9.3-17.3); White Blood Count 7.5 T/CUMM (4-12)
[2022-02-28 05:28] LABS: Calcium 8.7 MG/DL (8.5-10.1); Osmolality,Calculated 283.3 MOS/KG (273-304); Potassium 4.1 MMOL/L (3.5-5.1)
[2022-02-28] MEDS: LEVOTHYROXINE 150 MCG TABLET PO SCH (06:35)
[2022-02-28] MEDS: INSULIN LISPRO 100 UNIT/ML SUBCUT SCH ×4 (09:44→21:26)
[2022-02-28] MEDS: DAPAGLIFLOZIN 10 MG TABLET PO SCH (09:55)
[2022-02-28] MEDS: OMEGA 3 ACID ETHYL ESTERS 1 GM CAPSULE PO SCH (09:55)
[2022-02-28] MEDS: BACILLUS COAGULANS CAPLET PO SCH (09:55)
[2022-02-28] MEDS: CYANOCOBALAMIN 500 MCG TABLET PO SCH (09:55)
[2022-02-28] MEDS: SPIRONOLACTONE 25 MG TABLET PO SCH (09:55)
[2022-02-28] MEDS: TICAGRELOR 90 MG TABLET PO SCH ×2 (09:56→21:25)
[2022-02-28] MEDS: AMIODARONE 200 MG TABLET PO SCH (09:56)
[2022-02-28] MEDS: MULTIVITAMIN (CENTRUM) TABLET PO SCH (09:56)
[2022-02-28] MEDS: VITAMIN E 400 UNIT CAPSULE PO SCH (09:56)
[2022-02-28] MEDS: PANTOPRAZOLE 40 MG TABLET PO SCH (09:56)
[2022-02-28] MEDS: FERROUS SULFATE 325 MG TABLET PO SCH (09:56)
[2022-02-28] MEDS: ASCORBIC ACID 500 MG TABLET PO SCH (09:56)
[2022-02-28] MEDS: carvediloL 3.125 MG TABLET PO SCH ×2 (09:56→21:25)
[2022-02-28] MEDS: INSULIN GLARGINE 100 UNIT/ML SUBCUT SCH (09:57)
[2022-02-28] MEDS: ROSUVASTATIN 20 MG TABLET PO SCH (21:26)
[2022-02-28] MEDS: ASPIRIN EC 81 MG TABLET PO SCH (21:26)
[2022-02-28] MEDS: ENOXAPARIN 40 MG/0.4 ML SYRINGE SUBCUT SCH (21:26)
[2022-03-01] MEDS: LEVOTHYROXINE 150 MCG TABLET PO SCH (05:49)
[2022-03-01 05:51] LABS: Basophils # 0.1 10*3/uL (0.0-0.2); Basophils % 0.7 % (0.0-0.8); Eosinophils # 0.2 10*3/uL (0.0-0.87); Eosinophils % 2.5 % (0.00-10.9); Hematocrit 35.1 VOL% (42.0-52.0); Hemoglobin 11.6 GM/DL (14.0-18.0); Immature Granulocytes % 0.4 %; Immature Granulocytes Absolute 0.03 #; Lymphocytes # 1.7 10*3/uL (1.4-4.0); Lymphocytes % 23.3 % (21.2-54.2); Mean Corpuscular Volume 91.6 FL (87-102); Mean Platelet Volume 11.5 FL (9.6-12.0); Monocytes # 0.8 10*3/uL (0.11-0.8); Monocytes % 10.5 % (1.7-12.7); Neutrophils % 62.6 % (38.7-73.9); Platelet Count 173 T/CUMM (130-400); Red Blood Count 3.83 MC/CUMM (3.8-5.5); Red Cell Distribution Width 14.7 % (9.3-17.3); White Blood Count 7.3 T/CUMM (4-12)
[2022-03-01 06:09] LABS: Calcium 9.3 MG/DL (8.5-10.1); Osmolality,Calculated 281.4 MOS/KG (273-304); Potassium 4.4 MMOL/L (3.5-5.1)
[2022-03-01] MEDS: INSULIN LISPRO 100 UNIT/ML SUBCUT SCH ×4 (07:37→21:44)
[2022-03-01] MEDS: BACILLUS COAGULANS CAPLET PO SCH (10:04)
[2022-03-01] MEDS: PANTOPRAZOLE 40 MG TABLET PO SCH (10:04)
[2022-03-01] MEDS: TICAGRELOR 90 MG TABLET PO SCH ×2 (10:04→21:44)
[2022-03-01] MEDS: CYANOCOBALAMIN 500 MCG TABLET PO SCH (10:04)
[2022-03-01] MEDS: VITAMIN E 400 UNIT CAPSULE PO SCH (10:04)
[2022-03-01] MEDS: MULTIVITAMIN (CENTRUM) TABLET PO SCH (10:04)
[2022-03-01] MEDS: carvediloL 3.125 MG TABLET PO SCH (10:04)
[2022-03-01] MEDS: AMIODARONE 200 MG TABLET PO SCH (10:04)
[2022-03-01] MEDS: ASCORBIC ACID 500 MG TABLET PO SCH (10:04)
[2022-03-01] MEDS: SPIRONOLACTONE 25 MG TABLET PO SCH (10:05)
[2022-03-01] MEDS: FERROUS SULFATE 325 MG TABLET PO SCH (10:05)
[2022-03-01] MEDS: INSULIN GLARGINE 100 UNIT/ML SUBCUT SCH (10:05)
[2022-03-01] MEDS: DAPAGLIFLOZIN 10 MG TABLET PO SCH (10:05)
[2022-03-01] MEDS: OMEGA 3 ACID ETHYL ESTERS 1 GM CAPSULE PO SCH (10:05)
[2022-03-01] MEDS: ASPIRIN EC 81 MG TABLET PO SCH (21:44)
[2022-03-01] MEDS: ROSUVASTATIN 20 MG TABLET PO SCH (21:44)
[2022-03-02] MEDS: LEVOTHYROXINE 150 MCG TABLET PO SCH (05:26)
[2022-03-02] MEDS ORDERED: ceFAZolin 1,000 MG VIAL IRRIG ONE (07:42)
[2022-03-02] MEDS ORDERED: DIAZEPAM 5 MG TABLET PO ONE (07:42)
[2022-03-02] MEDS ORDERED: diphenhydrAMINE CAP 50 MG CAPSULE PO ONE (07:42)
[2022-03-02] MEDS ORDERED: MIDAZOLAM 2 MG/2 ML VIAL ONE ×2 (08:11→08:37)
[2022-03-02] MEDS ORDERED: fentaNYL 100 MCG/2 ML VIAL ONE (08:11)
[2022-03-02] MEDS ORDERED: ceFAZolin 1,000 MG VIAL ONE (08:15)
[2022-03-02] MEDS: INSULIN LISPRO 100 UNIT/ML SUBCUT SCH ×4 (08:24→21:27)
[2022-03-02] MEDS ORDERED: HYDROmorphone 1 MG/1 ML SYRINGE ONE (08:37)
[2022-03-02] MEDS ORDERED: TISSUE ADHESIVE 1 EACH APPLICATOR TOP ONE (10:10)
[2022-03-02] MEDS: BACILLUS COAGULANS CAPLET PO SCH (10:48)
[2022-03-02] MEDS: TICAGRELOR 90 MG TABLET PO SCH ×2 (10:48→21:26)
[2022-03-02] MEDS: MULTIVITAMIN (CENTRUM) TABLET PO SCH (10:58)
[2022-03-02] MEDS: INSULIN GLARGINE 100 UNIT/ML SUBCUT SCH (10:59)
[2022-03-02] MEDS: FERROUS SULFATE 325 MG TABLET PO SCH (10:59)
[2022-03-02] MEDS: DAPAGLIFLOZIN 10 MG TABLET PO SCH (10:59)
[2022-03-02] MEDS: VITAMIN E 400 UNIT CAPSULE PO SCH (11:00)
[2022-03-02] MEDS: CYANOCOBALAMIN 500 MCG TABLET PO SCH (11:00)
[2022-03-02] MEDS: ASCORBIC ACID 500 MG TABLET PO SCH (11:00)
[2022-03-02] MEDS: PANTOPRAZOLE 40 MG TABLET PO SCH (11:00)
[2022-03-02] MEDS: OMEGA 3 ACID ETHYL ESTERS 1 GM CAPSULE PO SCH (11:20)
[2022-03-02] MEDS: glipiZIDE 5 MG TABLET PO SCH (16:23)
[2022-03-02] MEDS: carvediloL 3.125 MG TABLET PO SCH (20:51)
[2022-03-02] MEDS ORDERED: glipiZIDE 5 MG TABLET PO SCH (21:00)
[2022-03-02] MEDS: ROSUVASTATIN 20 MG TABLET PO SCH (21:26)
[2022-03-02] MEDS: ASPIRIN EC 81 MG TABLET PO SCH (21:26)
[2022-03-03 05:26] LABS: Basophils % 0.4 % (0.0-0.8); Eosinophils # 0.2 10*3/uL (0.0-0.87); Eosinophils % 1.6 % (0.00-10.9); Hematocrit 37.3 VOL% (42.0-52.0); Hemoglobin 12.3 GM/DL (14.0-18.0); Immature Granulocytes % 0.4 %; Immature Granulocytes Absolute 0.04 #; Lymphocytes # 1.2 10*3/uL (1.4-4.0); Lymphocytes % 12.8 % (21.2-54.2); Mean Corpuscular Volume 91.6 FL (87-102); Mean Platelet Volume 11.8 FL (9.6-12.0); Monocytes % 10.3 % (1.7-12.7); Neutrophils % 74.5 % (38.7-73.9); Platelet Count 168 T/CUMM (130-400); Red Blood Count 4.07 MC/CUMM (3.8-5.5); Red Cell Distribution Width 14.6 % (9.3-17.3); White Blood Count 9.3 T/CUMM (4-12)
[2022-03-03] MEDS: LEVOTHYROXINE 150 MCG TABLET PO SCH (05:49)
[2022-03-03 06:18] LABS: Calcium 8.7 MG/DL (8.5-10.1); Osmolality,Calculated 282.5 MOS/KG (273-304); Potassium 4.1 MMOL/L (3.5-5.1)
[2022-03-03] MEDS: PANTOPRAZOLE 40 MG TABLET PO SCH (09:13)
[2022-03-03] MEDS: FERROUS SULFATE 325 MG TABLET PO SCH (09:13)
[2022-03-03] MEDS: ASCORBIC ACID 500 MG TABLET PO SCH (09:13)
[2022-03-03] MEDS: DAPAGLIFLOZIN 10 MG TABLET PO SCH (09:14)
[2022-03-03] MEDS: carvediloL 3.125 MG TABLET PO SCH ×2 (09:14→21:32)
[2022-03-03] MEDS: VITAMIN E 400 UNIT CAPSULE PO SCH (09:14)
[2022-03-03] MEDS: INSULIN LISPRO 100 UNIT/ML SUBCUT SCH ×4 (09:14→21:33)
[2022-03-03] MEDS: MULTIVITAMIN (CENTRUM) TABLET PO SCH (09:14)
[2022-03-03] MEDS: CYANOCOBALAMIN 500 MCG TABLET PO SCH (09:14)
[2022-03-03] MEDS: TICAGRELOR 90 MG TABLET PO SCH ×2 (09:14→21:32)
[2022-03-03] MEDS: OMEGA 3 ACID ETHYL ESTERS 1 GM CAPSULE PO SCH (09:14)
[2022-03-03] MEDS: glipiZIDE 5 MG TABLET PO SCH ×2 (09:14→16:45)
[2022-03-03] MEDS: INSULIN GLARGINE 100 UNIT/ML SUBCUT SCH (10:02)
[2022-03-03] MEDS: BACILLUS COAGULANS CAPLET PO SCH (10:02)
[2022-03-03] MEDS: AMIODARONE 200 MG TABLET PO SCH (10:02)
[2022-03-03] MEDS: ROSUVASTATIN 20 MG TABLET PO SCH (21:32)
[2022-03-03] MEDS: ASPIRIN EC 81 MG TABLET PO SCH (21:32)
[2022-03-04] MEDS: LEVOTHYROXINE 150 MCG TABLET PO SCH (06:18)
[2022-03-04] MEDS: glipiZIDE 5 MG TABLET PO SCH (10:07)
[2022-03-04] MEDS: FERROUS SULFATE 325 MG TABLET PO SCH (10:07)
[2022-03-04] MEDS: AMIODARONE 200 MG TABLET PO SCH (10:07)
[2022-03-04] MEDS: ASCORBIC ACID 500 MG TABLET PO SCH (10:07)
[2022-03-04] MEDS: carvediloL 3.125 MG TABLET PO SCH (10:07)
[2022-03-04] MEDS: PANTOPRAZOLE 40 MG TABLET PO SCH (10:07)
[2022-03-04] MEDS: DAPAGLIFLOZIN 10 MG TABLET PO SCH (10:07)
[2022-03-04] MEDS: BACILLUS COAGULANS CAPLET PO SCH (10:07)
[2022-03-04] MEDS: MULTIVITAMIN (CENTRUM) TABLET PO SCH (10:08)
[2022-03-04] MEDS: TICAGRELOR 90 MG TABLET PO SCH (10:08)
[2022-03-04] MEDS: VITAMIN E 400 UNIT CAPSULE PO SCH (10:08)
[2022-03-04] MEDS: OMEGA 3 ACID ETHYL ESTERS 1 GM CAPSULE PO SCH (10:08)
[2022-03-04] MEDS: CYANOCOBALAMIN 500 MCG TABLET PO SCH (10:08)
[2022-03-04] MEDS: INSULIN LISPRO 100 UNIT/ML SUBCUT SCH ×2 (10:18→12:48)
[2022-03-04] MEDS: INSULIN GLARGINE 100 UNIT/ML SUBCUT SCH (10:19)
[2022-03-04 12:32] VITALS: BP 103/61
== END 2022-03-04 13:22 | disposition home or self-care (01) | DRG 242 ==
LOC: N.ED 00:04 → N.EDINP 00:04 → SUATTDRO 02:06 → N.2W 03:12 → SUATTDRO 02-26 12:28 → N.TELEN 02-26 16:47
PROVIDERS: ADMIT Internal Medicine; ATTEND Internal Medicine Cardiovascular Disease